=== PATIENT | female | born 1945 | race Caucasian/White ===

== ENCOUNTER → 2016-12-18 | Outpatient (CLI) | payer MEDICARE, OTHER ==
[2016-12-18 11:46] LABS: COMPLEMENT C4 23.4 MG/DL (10-40); IMMUNOGLOBULIN M 71.8 MG/DL (40-230)
[2016-12-21 10:13] LABS: ALPHA 1 ANTITRYPSIN 137 mg/dL (90-200); D001-IgE D pteronyssinus 0.14 kU/L (Class 0/I); E001-IgE Cat Epith/Dander 1.03 kU/L (Class II); F002-IgE Milk < 0.10 kU/L (Class 0); F004-IgE Wheat 0.11 kU/L (Class 0/I); F013-IgE Peanut 0.13 kU/L (Class 0/I); F014-IgE Soybean < 0.10 kU/L (Class 0); F026-IgE Pork < 0.10 kU/L (Class 0); F027-IgE Beef < 0.10 kU/L (Class 0); F245-IgE Egg, Whole < 0.10 kU/L (Class 0); FX02-IgE Food Mix (Sea Foods) Negative (.); G002-IgE Bermuda Grass < 0.10 kU/L (Class 0); G008-IgE Kentucky Bluegrass < 0.10 kU/L (Class 0); M001-IgE Penicillium chrysogen < 0.10 kU/L (Class 0); M002 IgE Cladosporium herbaru < 0.10 kU/L (Class 0); M003 IgE Aspergillus fumigatu < 0.10 kU/L (Class 0); M006-IgE Alternaria alternata < 0.10 kU/L (Class 0); T001-IgE Maple/Box Elder 0.42 kU/L (Class I); T003-IgE Common Silver Birch 4.95 kU/L (Class IV); T007-IgE Oak, White 0.49 kU/L (Class I); T015-IgE Ash, White 0.16 kU/L (Class 0/I); T041-IgE Hickory, White 2.98 kU/L (Class III); W001-IgE Ragweed, Short 0.11 kU/L (Class 0/I); W009-IgE Plantain, English < 0.10 kU/L (Class 0); W014-IgE Pigweed, Rough < 0.10 kU/L (Class 0); W018-IgE Sheep Sorrel < 0.10 kU/L (Class 0)
== END ==
LOC: M LAB 10:37
PROVIDERS: ATTEND Allergy & Immunology
DX: J30.1 Allergic rhinitis due to pollen (principal); J30.81 Allergic rhinitis due to animal (cat) (dog) hair and dander

== ENCOUNTER → 2017-03-14 | Outpatient (CLI) | payer MEDICARE, OTHER ==
--- NOTE | 2017-03-14 15:23 | REPMRS ---
Patient History The patient states she had a clinical breast exam in 02/2017. Patient is postmenopausal. No known family history of cancer. Digital Woman Screen Mammo: March 14, 2017 - Exam #: [id number] Bilateral CC and MLO view(s) were taken. Technologist: Nubia Manjarrez Technologist Prior study comparison: February 17, 2016, digital woman screen mammo performed at [facility]. December 14, 2014, digital woman screen mammo performed at [facility]. FINDINGS: There are scattered fibroglandular densities. There has been no change in the appearance of the mammogram from the prior studies. There is a mild amount of residual fibroglandular tissue which is fairly symmetric. There is no interval development of dominant mass, architectural distortion, or clustered microcalcification suggestive of malignancy. ASSESSMENT: BI-RADS/ACR category 1 mammogram. Negative. Recommendation Routine screening mammogram in 1 year (for women over age 40). This mammogram was interpreted with the aid of an FDA-approved computer-aided dectection system. Electronically Signed By: Mo Mae MD 03/14/17 3517
== END ==
LOC: M WHC 14:03
PROVIDERS: ATTEND Nurse Practitioner Women's Health
DX: Z12.31 Encounter for screening mammogram for malignant neoplasm of breast (principal)
CPT/HCPCS: G0202; G0463

== ENCOUNTER → 2017-04-04 | Outpatient (CLI) | payer MEDICARE, OTHER ==
--- NOTE | 2017-04-08 09:02 | DEXA ---
AP SPINE L1 - L4 1.061 -1.1 0.6 LT FEMUR TOTAL 0.982 -0.2 1.2 RT FEMUR TOTAL 0.931 -0.6 0.8 TOTAL BODY TOTAL OTHER DUAL FEMUR FRAX* ASSESSMENT Risk factors: Not performed. 10 year probability of fracture Major osteoporotic fracture % Hip fracture % COMMENTS: There is low bone density of the spine and hips. The density of the spine has decreased 4.2% since the initial exam on 2001. The spine density has decreased 3.3% since the most recent exam on 11/12/2013. The density of the left hip has decreased 1.3% since the initial exam on 2001. The density of the left hip has increased 2.1% since the most recent exam on . The density of the right hip has decreased 5.8% since the initial exam on 2001. The density of the right hip has decreased 0.3% since the most recent exam on . FOLLOW-UP: Recommendation for the next bone density exam: 2 years. JOEL
== END ==
LOC: M WHC 09:48
PROVIDERS: ATTEND Family Medicine
DX: M85.80 Other specified disorders of bone density and structure, unspecified site (principal); Z78.0 Asymptomatic menopausal state

== ENCOUNTER → 2017-07-18 | Outpatient (REF) | payer MEDICARE, OTHER | LOC: M LAB REF 17:56 | PROVIDERS: ATTEND Physician Assistant | DX: N39.0 Urinary tract infection, site not specified (principal) ==

== ENCOUNTER → 2017-07-18 | Outpatient (REF) | payer MEDICARE, OTHER ==
[~2017-07-18] MED LIST: EPIN1DRO; IBUP80TA PO; VENTAER
== END ==
LOC: M LAB REF 13:53
PROVIDERS: ATTEND Physician Assistant
DX: R53.83 Other fatigue (principal); N39.0 Urinary tract infection, site not specified

== ENCOUNTER 2017-07-28 07:16 | Emergency (ER) | payer MEDICARE, OTHER | END 2017-07-28 08:17 | disposition home or self-care (01) | LOC: M ED 07:16 | DX: M54.5 Low back pain (principal); R05 Cough; R03.0 Elevated blood-pressure reading, without diagnosis of hypertension; J45.909 Unspecified asthma, uncomplicated; Z91.048 Other nonmedicinal substance allergy status; Z88.2 Allergy status to sulfonamides; Z91.040 Latex allergy status | CPT/HCPCS: 99282 ==

== ENCOUNTER 2018-02-20 10:00 | Emergency (ER) | payer MEDICARE, OTHER ==
[2018-02-20 11:55] LABS: AMORPHOUS SEDIMENT RFX SMALL (NEGATIVE); KETONE, URINE AUTO RFX NEGATIVE (NEGATIVE); MUCUS, URINE RFX LARGE (NEGATIVE); NITRITE, URINE AUTO RFX NEGATIVE (NEGATIVE); RBC, URINE AUTO RFX 2 /HPF (0-3); SPECIFIC GRAVITY UR AUTO RFX 1.027 (1.002-1.035); SQUAM EPITHELIAL CELL UR AURFX 6 /HPF (0-6); WBC, URINE AUTO RFX 3 /HPF (0-3)
[2018-02-20 11:59] LABS: LEUKOCYTE ESTERASE UR AUTO RFX 1+ (NEGATIVE)
== END 2018-02-20 12:38 | disposition home or self-care (01) ==
LOC: M ED 10:00
DX: K59.00 Constipation, unspecified (principal); J45.909 Unspecified asthma, uncomplicated; Z87.442 Personal history of urinary calculi; Z79.899 Other long term (current) drug therapy; Z91.040 Latex allergy status; Z88.2 Allergy status to sulfonamides
CPT/HCPCS: 74018

== ENCOUNTER 2018-04-18 07:47 | Emergency (ER) | payer MEDICARE, OTHER ==
[2018-04-18] MEDS: IBUPROFEN 800 MG TAB PO (09:24)
== END 2018-04-18 09:34 | disposition home or self-care (01) ==
LOC: M ED 07:47
DX: M75.31 Calcific tendinitis of right shoulder (principal); J45.909 Unspecified asthma, uncomplicated; Z87.442 Personal history of urinary calculi; Z79.82 Long term (current) use of aspirin; Z79.899 Other long term (current) drug therapy; Z88.2 Allergy status to sulfonamides; Z91.040 Latex allergy status
CPT/HCPCS: 73030

== ENCOUNTER → 2018-05-15 | Outpatient (CLI) | payer MEDICARE, OTHER | LOC: M WHC 09:52 | DX: Z12.31 Encounter for screening mammogram for malignant neoplasm of breast (principal); R92.8 Other abnormal and inconclusive findings on diagnostic imaging of breast | CPT/HCPCS: 77067 ==

== ENCOUNTER 2019-02-22 09:12 | Emergency (ER) | payer MEDICARE, OTHER ==
[~2019-02-22] VITALS: Ht 172.7 cm; Wt 93.2 kg
[~2019-02-22 09:12] MED LIST changes: +ASPI81TA85 PO; +IBUP-1022 PO
[2019-02-22] MEDS ORDERED: D3 S20002 PO (09:18)
[2019-02-22 11:16] VITALS: BP 145/99
--- NOTE | 2019-02-24 15:37 | REP ---
Maxillofacial CT without IV contrast: There is a right frontal scalp contusion. There is no nasal bone fracture. The ocular lenses and globes are unremarkable. The retrobulbar orbits are unremarkable. There is no orbit fracture. There is no zygoma fracture. No paranasal sinus fracture. The mastoid air cells are clear. There is no mandibular fracture or dislocation. Impression: Right frontal scalp contusion. No facial bone fracture. Electronically Signed by Mo Townsend MD 02/22/2019 10:13 A
== END 2019-02-22 11:11 | disposition home or self-care (01) ==
LOC: M ED 09:12
DX: S00.01XA Abrasion of scalp, initial encounter (principal); S00.03XA Contusion of scalp, initial encounter; S05.11XA Contusion of eyeball and orbital tissues, right eye, initial encounter; W01.10XA Fall on same level from slipping, tripping and stumbling with subsequent striking against unspecified object, initial encounter; Y92.480 Sidewalk as the place of occurrence of the external cause; Y93.01 Activity, walking, marching and hiking; Y99.9 Unspecified external cause status; J45.909 Unspecified asthma, uncomplicated; Z87.442 Personal history of urinary calculi; Z79.82 Long term (current) use of aspirin; Z79.899 Other long term (current) drug therapy; Z88.2 Allergy status to sulfonamides; Z91.040 Latex allergy status

== ENCOUNTER → 2019-05-18 | Outpatient (CLI) | payer MEDICARE, OTHER ==
[~2019-05-18] MED LIST changes: +D3 S20002 PO
--- NOTE | 2019-05-18 09:49 | REPMRS ---
Patient History The patient states she had a clinical breast exam in 04/2019. No known family history of cancer. 3D TOMOSYNTHESIS WAS PERFORMED. The [facility] lifetime risk for breast cancer is 2.8%. Digital Woman Screen Mammo: May 18, 2019 - Exam #: [id number] Bilateral CC and MLO view(s) were taken. Technologist: Nubia Manjarrez, Technologist Prior study comparison: May 15, 2018, bilateral digital woman screen mammo performed at [facility]. March 14, 2017, digital woman screen mammo performed at [facility]. FINDINGS: The breast tissue is heterogeneously dense. This may lower the sensitivity of mammography. There has been no change in the appearance of the mammogram from the prior studies. There is a moderate amount of residual fibroglandular tissue which is fairly symmetric. There is no interval development of dominant mass, areas of architectural distortion, or clustered microcalcification typical of malignancy. Assessment: BI-RADS/ACR category 1 mammogram. Negative Mammogram. Recommendation Routine screening mammogram in 1 year (for women over age 40). This mammogram was interpreted with the aid of an FDA-approved computer-aided dectection system. Electronically Signed By: Mo Mae MD 05/18/19 0972
== END ==
LOC: M WHC 08:48
PROVIDERS: ATTEND Nurse Practitioner Women's Health
DX: Z12.31 Encounter for screening mammogram for malignant neoplasm of breast (principal)

== ENCOUNTER → 2020-05-19 | Outpatient (CLI) | payer MEDICARE, OTHER ==
[~2020-05-19] MED LIST changes: -ASPI81TA85 PO; +ASPI81TA86 PO
--- NOTE | 2020-05-19 09:45 | REPMRS ---
Patient History The patient states she had a clinical breast exam in 03/2020. Patient is postmenopausal. No known family history of cancer. No Hormone Replacement Therapy 3D TOMOSYNTHESIS WAS PERFORMED. [facility] lifetime risk for breast cancer is 2.6%. Volpara breast density b. Digital Woman Screen Mammo: May 19, 2020 - Exam #: [id number] Bilateral CC and MLO view(s) were taken. Technologist: Sherice Brambila, Technologist Prior study comparison: May 18, 2019, bilateral digital woman screen mammo performed at [facility]. May 15, 2018, bilateral digital woman screen mammo performed at [facility]. FINDINGS: There are scattered fibroglandular densities. There has been no change in the appearance of the mammogram from the prior studies. There is a mild amount of residual fibroglandular tissue which is fairly symmetric. There is no interval development of dominant mass, architectural distortion, or clustered microcalcification suggestive of malignancy. Assessment: BI-RADS/ACR category 1 mammogram. Negative Mammogram. Recommendation Routine screening mammogram in 1 year (for women over age 40). This mammogram was interpreted with the aid of an FDA-approved computer-aided dectection system. Electronically Signed By: Mo Mae MD 05/19/20 0944
== END ==
LOC: M WHC 08:46
PROVIDERS: ATTEND Family Medicine
DX: Z12.31 Encounter for screening mammogram for malignant neoplasm of breast (principal); Z78.0 Asymptomatic menopausal state

== ENCOUNTER → 2020-10-31 | Outpatient (CLI) | payer MEDICARE, OTHER ==
--- NOTE | 2020-10-31 10:42 | DEXAMM ---
INDICATION: M85.80 DISORDER OF BONE. COMPARISON: 04/04/2017 as well as other prior exams. TECHNIQUE: Bone density was measured using dual-energy x-ray absorptiometry (DEXA). FINDINGS: AP SPINE L1-L4 BMD 1.088 g/cm2 Young Adult T-Score -0.9 Age Matched Z-Score 0.9. LT FEMUR, TOTAL BMD 0.952 g/cm2 Young Adult T-Score -0.4 Age Matched Z-Score 1.2. LT NECK BMD 0.87 g/cm2 Young Adult T-Score -1.2 Age Matched Z-Score 0.6. RT FEMUR, TOTAL BMD 0.939 g/cm2 Young Adult T-Score -0.5 Age Matched Z-Score 1.1. RT NECK BMD 0.815 g/cm2 Young Adult T-Score -1.6 Age Matched Z-Score 0.2. IMPRESSION: There is normal bone density of the spine. There is low bone density of the left hip. There is low bone density of the right hip. The density of the spine has decreased 1.7% since the initial exam on 07/16/2002. The density of the spine increased 2.5% since most recent exam on 04/04/2017. The density of the left hip has decreased 4.3% since initial exam on 07/16/2002. The density of the left hip has decreased 3.1% since most recent exam on 04/04/2017. The density of the right hip has decreased 5.0% since the initial exam on 07/16/2002. The density of the right hip has increased 0.9% since the most recent exam on 04/04/2017. FOLLOW-UP: Recommendation for the next bone density exam: 2 years. <Electronically signed by Mo Mae > 10/31/20 1038
== END ==
LOC: M WHC 09:39
PROVIDERS: ATTEND Family Medicine
DX: M85.851 Other specified disorders of bone density and structure, right thigh (principal); M85.852 Other specified disorders of bone density and structure, left thigh

== ENCOUNTER 2021-02-21 11:14 | Emergency (ER) | payer MEDICARE, OTHER ==
[~2021-02-21] VITALS: Ht 170.2 cm; Wt 94.8 kg
[2021-02-21] MEDS ORDERED: SYMB16INH INH (11:57)
[2021-02-21] MEDS ORDERED: CALC500C16 PO (11:57)
[2021-02-21 12:39] LABS: BASO # 0.1 10^3/uL (0.0-0.2); BASO % 0.6 % (0.0-1.0); EOS # 0.2 10^3/uL (0.0-0.5); EOS % 1.9 % (0.0-3.0); LYMPH # 1.1 10^3/uL (1.5-5.0); LYMPH % 13.7 % (24.0-44.0); MEAN CORPUSCULAR HEMOGLOBIN 30.3 pg (27.0-33.0); MEAN CORPUSCULAR HGB CONC 32.6 g/dl (32.0-36.5); MEAN CORPUSCULAR VOLUME 92.9 fl (80.0-96.0); MONO # 0.5 10^3/uL (0.0-0.8); MONO % 6.8 % (2.0-8.0); NEUTROPHILS % 76.6 % (36.0-66.0); PLATELET COUNT, AUTOMATED 202 10^3/uL (150-450); RED BLOOD COUNT 4.95 10^6/uL (4.00-5.40); WHITE BLOOD COUNT 7.9 10^3/uL (4.0-10.0)
[2021-02-21 13:07] LABS: ALBUMIN 3.8 GM/DL (3.2-5.2); ALT/SGPT 52 U/L (12-78); BILIRUBIN,DIRECT 0.2 MG/DL (0.0-0.2); BILIRUBIN,TOTAL 0.5 MG/DL (0.2-1.0); BLOOD UREA NITROGEN 17 MG/DL (7-18); CALCIUM LEVEL 9.9 MG/DL (8.8-10.2); CARBON DIOXIDE LEVEL 28 MEQ/L (21-32); CHLORIDE LEVEL 109 MEQ/L (98-107); CREATININE FOR GFR 0.68 MG/DL (0.55-1.30); GLOMERULAR FILTRATION RATE > 60.0 (>39); GLUCOSE, FASTING 118 MG/DL (70-100); LIPASE 250 U/L (73-393); SODIUM LEVEL 142 MEQ/L (136-145); TOTAL PROTEIN 7.8 GM/DL (6.4-8.2)
--- NOTE | 2021-02-21 15:04 | REP ---
INDICATION: r flank pain, hx of stones COMPARISON: Comparison CT study is from January 04, 2016.. TECHNIQUE: Helical scanning is acquired and 3 mm axial images were reformatted. Coronal and sagittal MPR images were generated and reviewed. 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 The lung bases are clear on axial CT images. The liver is normal in size homogeneous in texture. There are 2 large granulomatous calcifications in the spleen. No adrenal mass is observed on either side. No abnormality is noted in the pancreas. The gallbladder is unremarkable. No left intrarenal calculus or left-sided hydronephrosis is seen. There is moderate right-sided hydronephrosis and hydroureter. The dilated right ureter can be traced to the reader a vesicle junction where there is a 5.6 mm obstructing calculus in the intramural segment of the ureterovesical junction on the right. There is mild Mere ureteral edema. There are 2 identifiable intrarenal calculi each measuring 4 mm in greatest diameter in the right kidney. These are new when compared with the prior study. Small and large bowel loops are unremarkable. A normal appendix is seen in the right lower quadrant. No abdominal wall defect is seen. No bony destructive lesion is observed. IMPRESSION: There is an obstructive 5.6 mm calculus in the intramural segment of the right ureterovesical junction with moderate hydronephrosis and hydroureter. Intrarenal calculi are also noted in the right kidney. <Electronically signed by Guido Valencia > 02/21/21 1500
[2021-02-21] MEDS ORDERED: KETOROLAC 30 MG/ML 1ML VIAL IV ONE (16:00)
[2021-02-21] MEDS ORDERED: FLOM0.4C39 PO (16:11)
[2021-02-21] MEDS ORDERED: ACET1TAB16 PO (16:11)
[2021-02-21 16:45] VITALS: BP 155/89
== END 2021-02-21 16:52 | disposition home or self-care (01) ==
LOC: M ED 11:14
DX: N13.2 Hydronephrosis with renal and ureteral calculous obstruction (principal); Z87.442 Personal history of urinary calculi; Z79.82 Long term (current) use of aspirin; Z79.899 Other long term (current) drug therapy; Z88.2 Allergy status to sulfonamides; Z91.040 Latex allergy status
CPT/HCPCS: 74176; 80048; 80076; 81001; 83690; 85025; 96374; 99284; J1885

== ENCOUNTER → 2021-06-15 | Outpatient (CLI) | payer MEDICARE, OTHER ==
[~2021-06-15] MED LIST changes: +ACET1TAB16 PO; +CALC500C16 PO; +FLOM0.4C39 PO; +SYMB16INH INH
--- NOTE | 2021-06-15 13:36 | REPMRS ---
Patient History The patient states she has not had a clinical breast exam in over a year. No known family history of cancer. No Hormone Replacement Therapy Patient states no breast complaints today. Patient has signed MRS History Sheet. Digital Woman Screen Mammo: June 15, 2021 - Exam #: [id number] Bilateral CC and MLO view(s) were taken. Technologist: Yessy Gay Technologist Prior study comparison: May 19, 2020, bilateral digital woman screen mammo performed at [facility]. May 18, 2019, bilateral digital woman screen mammo performed at [facility]. FINDINGS: There are scattered fibroglandular densities. Screening. Digital screening (2D) mammography was performed bilaterally in the CC and MLO projections. Additionally, breast tomosynthesis (3D mammography) was performed bilaterally in the CC and MLO projections. Todays exam was compared to the prior exam/exams. By history, the patient has no complaints of a palpable breast abnormality or other significant breast complaints. The Volpara volumetric breast density category is B, there are scattered areas of fibroglandular densities. The breasts are unchanged in size and shape. There are no markie-soft tissue densities or spiculated masses. There is no internal architectural distortion. There are no suspicious markie-calcific clusters. Skin thickening or nipple retraction is not present. IMPRESSION: BI-RADS Category 2- Benign Findings. There is no evidence of malignant alteration of the breasts. Followup examination recommended in one year. The lifetime Tyrer-Cuzick score is 2.4% This mammogram was read with the assistance of [employer],an FDA approved computer aided detection system for mammography. Negative x-ray reports should not delay surgical consultation if a dominant or clinically suspicious mass is present. Not all breast cancers can be identified by mammography. Therefore, we recommend that you continue to perform regular breast self-examination and physical examination and then promptly contact your physician of any concerns or changes. Adenosis and dense breasts may obscure an underlying neoplasm. No significant changes when compared with prior studies. Assessment: BI-RADS/ACR category 2 mammogram. Benign Findings. Recommendation Routine screening mammogram of both breasts in 1 year. Electronically Signed By: Mark Trotter MD 06/15/21 0716
== END ==
LOC: M WHC 09:08
PROVIDERS: ATTEND Registered Nurse
DX: Z12.31 Encounter for screening mammogram for malignant neoplasm of breast (principal)

== ENCOUNTER → 2022-06-25 | Outpatient (CLI) | payer MEDICARE, OTHER ==
[~2022-06-25] MED LIST changes: -ACET1TAB16 PO; +ACET300T48 PO
== END ==
LOC: M WHC 10:39
PROVIDERS: ATTEND Family Medicine
DX: Z12.31 Encounter for screening mammogram for malignant neoplasm of breast (principal)

== ENCOUNTER 2022-07-16 07:19 | Emergency (ER) | payer MEDICARE, OTHER ==
[~2022-07-16] VITALS: Ht 172.7 cm; Wt 84.1 kg
[2022-07-16 07:20] VITALS: BP 153/93
[2022-07-16 08:07] LABS: BASO % 0.4 % (0.0-1.0); EOS # 0.2 10^3/uL (0.0-0.5); EOS % 2.1 % (0.0-3.0); HEMOGLOBIN 13.6 g/dl (12.0-15.5); LYMPH # 1.3 10^3/uL (1.5-5.0); LYMPH % 18.7 % (24.0-44.0); MEAN CORPUSCULAR HGB CONC 31.6 g/dl (32.0-36.5); MEAN CORPUSCULAR VOLUME 94.9 fl (80.0-96.0); MONO # 0.7 10^3/uL (0.0-0.8); MONO % 9.7 % (2.0-8.0); NEUTROPHILS # 4.8 10^3/uL (1.5-8.5); NEUTROPHILS % 68.7 % (36.0-66.0); PLATELET COUNT, AUTOMATED 174 10^3/uL (150-450); RED BLOOD COUNT 4.53 10^6/uL (4.00-5.40)
[2022-07-16 08:22] LABS: BILIRUBIN,DIRECT 0.4 MG/DL (<0.4); CPK CREATINE PHOSPHOKINASE 52 U/L (34-145)
[2022-07-16 08:23] LABS: ALBUMIN 3.4 G/DL (3.2-5.2); ALKALINE PHOSPHATASE 65 U/L (46-116); ALT/SGPT 35 U/L (7.0-40); AST/SGOT 35 U/L (<34); BILIRUBIN,TOTAL 1.2 MG/DL (0.3-1.2); BLOOD UREA NITROGEN 17 MG/DL (9-23); CALCIUM LEVEL 8.7 MG/DL (8.3-10.6); CARBON DIOXIDE LEVEL 27 MMOL/L (20-31); CHLORIDE LEVEL 109 MMOL/L (98-107); CREATININE FOR GFR 0.63 MG/DL (0.55-1.30); GLOMERULAR FILTRATION RATE > 60.0 (>39); GLUCOSE, FASTING 103 MG/DL (74-106); MB/CK RELATIVE INDEX 1.92 (< OR =4); POTASSIUM SERUM 3.8 MMOL/L (3.5-5.1); SODIUM LEVEL 144 MMOL/L (136-145)
[2022-07-16 08:24] LABS: THYROID STIMULATING HORMONE 6.824 uIU/ML (0.55-4.78)
[2022-07-16 08:25] LABS: THYROXINE (T4) 13.9 UG/DL (4.5-10.9)
[2022-07-16] MEDS ORDERED: ISOVUE-370 76% 100ML VIAL As Ordered ONE (09:12)
[2022-07-16] MEDS ORDERED: FUROSEMIDE 40MG/4ML VIAL IV ONE (10:35)
[2022-07-16] MEDS ORDERED: FURO20TA2 PO (12:30)
== END 2022-07-16 13:19 | disposition home or self-care (01) ==
LOC: M ED 07:19
DX: I50.9 Heart failure, unspecified (principal); R91.8 Other nonspecific abnormal finding of lung field; J90 Pleural effusion, not elsewhere classified; I31.39 Other pericardial effusion (noninflammatory); J45.909 Unspecified asthma, uncomplicated; Z79.82 Long term (current) use of aspirin; Z79.899 Other long term (current) drug therapy; Z88.2 Allergy status to sulfonamides; Z91.040 Latex allergy status
CPT/HCPCS: 71045; 71275; 80048; 80076; 82550; 82553; 83880; 84436; 84443; 84484; 85025; 87486; 87581; 87633; 87798; 93005; 96374; 99284; J1940; Q9967

== ENCOUNTER → 2024-07-13 | Outpatient (CLI) | payer MEDICARE ==
[~2024-07-13] MED LIST changes: +EPIN0.055; -EPIN1DRO; +FURO20TA2 PO
== END ==
LOC: M WHC 08:49
PROVIDERS: ATTEND Family Medicine
DX: Z12.31 Encounter for screening mammogram for malignant neoplasm of breast (principal)

== ENCOUNTER → 2024-08-04 | Outpatient (CLI) | payer MEDICARE | LOC: M EKG 10:47 | PROVIDERS: ATTEND Registered Nurse | DX: I49.3 Ventricular premature depolarization (principal) ==

== ENCOUNTER → 2024-08-26 | Outpatient (CLI) | payer MEDICARE | LOC: M CARPUL 09:43 | PROVIDERS: ATTEND Registered Nurse | DX: I50.32 Chronic diastolic (congestive) heart failure (principal); I49.3 Ventricular premature depolarization ==

== ENCOUNTER 2024-11-02 08:01 | Day surgery (SDC) | payer MEDICARE ==
[~2024-11-02] VITALS: Ht 167.6 cm; Wt 94.8 kg
[~2024-11-02 08:01] MED LIST changes: +BUDE10.3 INH; +DOXY100C3 PO; +FARX1TAB3 PO; +LIDOCAINE 2% 100MG/5ML SDV (FOR ANES.) As Ordered ONE; +NEBI2.5T PO; +propofoL 200 MG/20 ML VIAL As Ordered ONE
[2024-11-02 10:45] VITALS: BP 147/73; O2SAT 95
== END 2024-11-02 10:52 | disposition home or self-care (01) ==
LOC: M OPP 08:01
PROVIDERS: ATTEND Internal Medicine Gastroenterology
DX: Z12.11 Encounter for screening for malignant neoplasm of colon (principal); R19.5 Other fecal abnormalities; D12.8 Benign neoplasm of rectum; D12.6 Benign neoplasm of colon, unspecified; K57.30 Diverticulosis of large intestine without perforation or abscess without bleeding; K64.0 First degree hemorrhoids; Z88.2 Allergy status to sulfonamides; Z91.040 Latex allergy status; Z79.51 Long term (current) use of inhaled steroids; Z79.84 Long term (current) use of oral hypoglycemic drugs; Z79.899 Other long term (current) drug therapy; J45.909 Unspecified asthma, uncomplicated

== ENCOUNTER → 2025-07-15 | Outpatient (CLI) | payer MEDICARE ==
[~2025-07-15] MED LIST changes: -FLOM0.4C39 PO; -IBUP-1022 PO; +IBUP600T42 PO; -LIDOCAINE 2% 100MG/5ML SDV (FOR ANES.) As Ordered ONE; +TAMS-18 PO; -propofoL 200 MG/20 ML VIAL As Ordered ONE
== END ==
LOC: M WHC 10:45
PROVIDERS: ATTEND Family Medicine
DX: Z12.31 Encounter for screening mammogram for malignant neoplasm of breast (principal); R92.323 Mammographic fibroglandular density, bilateral breasts; R92.1 Mammographic calcification found on diagnostic imaging of breast